=== PATIENT | male | born 1950 | race Caucasian/White ===

== ENCOUNTER 2016-09-09 08:38 | Day surgery (SDC) | payer MEDICARE ==
[~2016-09-09] VITALS: Ht 177.8 cm; Wt 93.0 kg
[~2016-09-09 08:38] MED LIST: ACET-171 PO; ACYC400T2 PO; ATOR20TA PO; Sodium Chloride LOK Flush 10 mL Syringe IV PRN; fentaNYL-PF 50 mCg/mL 2 mL Inj IVPUSH PRN
[2016-09-09 08:58] VITALS: BP 150/95; PULSE 73; RESP 14; O2SAT 96
[2016-09-09] MEDS: 0.9% Sodium Chloride 1,000 ML IV SCH ×2 (09:29→09:51)
[2016-09-09 10:06] VITALS: BP 156/95; PULSE 62; RESP 14; O2SAT 96
[2016-09-09 10:11] VITALS: BP 152/95; PULSE 60; RESP 14; O2SAT 96
--- NOTE | 2016-09-09 10:29 | ENDO ---
[address] [address] ENDOSCOPY PROCEDURE PATIENT: CHERY WILSON : 1950 MR#: [id number] ADMIT: 09/09/2016 JOB ID: [id number] DATE OF SERVICE: 09/09/2016 PRIMARY PROVIDER: Rakan Mcgee MD. PROCEDURE: Colonoscopy with cold snare polypectomy. INDICATIONS: A 66-year-old male who reports for colon cancer screening. EQUIPMENT: [id number]. SEDATION: 1. Versed 3 mg. 2. Fentanyl 75 mcg. COMPLICATIONS: None identified. BOWEL PREPARATION: Fair, adequate exam. PROCEDURE INFORMATION: After the risks and benefits were explained, written and verbal informed consent was obtained. The patient was brought into the endoscopy suite and placed into the left lateral decubitus position. Sedation was achieved as above. A digital rectal examination was accomplished. There were some mild internal and external hemorrhoids with a small anal skin tag. No fissure appreciated. No other significant pathology noted. The scope was introduced into the rectum and advanced to the cecum as identified by the appendiceal orifice and ileocecal valve. The scope was slowly withdrawn to carefully examine the mucosa for any defects or lesions. Retroflexed views were accomplished in the rectum. The colon was decompressed. The scope removed from the patient who tolerated the procedure well. FINDINGS: Moderate diverticulosis was seen throughout the sigmoid region. Retroflexed views from within the rectum were unremarkable. There was a small, perhaps 4-5 mm polyp removed with cold snare in the transverse colon. No other significant pathology was appreciated throughout. ENDOSCOPIC DIAGNOSES: 1. Colon polyp. 2. Diverticulosis. 3. Hemorrhoids. RECOMMENDATIONS: 1. Await histopathology. 2. If this polyp is confirmed adenomatous, repeat colonoscopy in five years.
--- NOTE | 2016-09-10 11:34 | PATH ---
SURGICAL PATHOLOGY Attending Physician:Mikie Albright CASE STATUS: Signed Out PATIENT NAME: CHERY WILSON PID: [id number] : 1950 DATE COLLECTED:09/09/2016 16:57 SPECIMEN: Colon, Biopsy CLINICAL HISTORY: A: TRANSVERSE COLON POLYP FINAL DIAGNOSIS: 1.TRANSVERSE COLON POLYP: TUBULAR ADENOMA. ICD10 CODE D12.3 GROSS DESCRIPTION: The specimen is received in one formalin filled container labeled with the patient's name, sublabeled "transverse colon polyp" and consists of a 0.3 x 0.3 x 0.2 CM portion of tissue which is entirely submitted in one cassette. 09/09/2016 DAC MICRO DESCRIPTION: See diagnosis. ICD-9 CODES: CPT CODES: 1: 64160 Electronically Signed Out Lorin Ordonez MD [facility]ology [facility] [address], [place] [address] Technical component performed at [facility], [address] [place] [address] Ave[address], [place], [address]
== END 2016-09-09 23:59 | disposition home or self-care (01) ==
LOC: END 08:38
PROVIDERS: ATTEND Internal Medicine Gastroenterology
DX: Z12.11 Encounter for screening for malignant neoplasm of colon (principal); D12.3 Benign neoplasm of transverse colon; K64.9 Unspecified hemorrhoids; K57.30 Diverticulosis of large intestine without perforation or abscess without bleeding; E78.2 Mixed hyperlipidemia
CPT/HCPCS: 45385; 99153; G0500; J2250; J7030